=== PATIENT | male | born 1950 | race Hispanic/Latino ===

== ENCOUNTER → 2018-11-14 | Outpatient (CLI) | payer MEDICARE ==
[~2018-11-14] MED LIST: ACET-2123 PO; ASPI-1005 PO; ATOR10 PO; BISM262O28 PO; BUSP15TA3 PO; CARB15OT AD; CARB300C6 PO; DICL2100G TP; DIPH103G TP; DIPH25 PO; DOCU-282 PO; DOCU100T PO; FAMO20TA8 PO; FENO145T37 PO; FERR325T22 PO; GUAIFDM PO; HC1C1.5 TP; IBUP-2353 PO; LAMO100T13 PO; LIDO240G3 TP; MAGN400O17 PO; MELO-108 PO; MICO133A2 TP; MULT1TAB76 PO; OLOP15OS OD; PHEN177S29 PO; RISP4TAB16 PO; SERT100T12 PO
== END | disposition home or self-care (01) ==
LOC: OIH 10:47
PROVIDERS: ATTEND Internal Medicine
DX: M17.12 Unilateral primary osteoarthritis, left knee (principal); M17.11 Unilateral primary osteoarthritis, right knee; M23.92 Unspecified internal derangement of left knee; M25.762 Osteophyte, left knee; M25.462 Effusion, left knee; M25.461 Effusion, right knee
CPT/HCPCS: 73560

== ENCOUNTER → 2019-06-12 | Outpatient (CLI) | payer MEDICARE ==
[~2019-06-12] MED LIST changes: -CARB300C6 PO; +CARB300C9 PO; +FENO145T26 PO; -FENO145T37 PO; -IBUP-2353 PO; +IBUP-2784 PO; -LAMO100T13 PO; +LAMO100T16 PO
== END | disposition home or self-care (01) ==
LOC: OIH 10:54
PROVIDERS: ATTEND Internal Medicine
DX: M19.041 Primary osteoarthritis, right hand (principal); M25.741 Osteophyte, right hand
CPT/HCPCS: 73120

== ENCOUNTER 2020-08-16 11:19 | Emergency (ER) | payer MEDICARE ==
[~2020-08-16 11:19] MED LIST changes: -MULT1TAB76 PO; -RISP4TAB16 PO; +RISP4TAB73 PO; +SERT-440 PO; -SERT100T12 PO; +THEREMS-M1 EACH PO
[2020-08-16 12:11] LABS: BASOPHILS % (AUTO) 0.7 % (0.0-5.0); EOSINOPHILS % (AUTO) 3.9 % (0.0-8.0); HEMATOCRIT 30.7 % (42-54); LYMPHOCYTES % (AUTO) 25.3 % (21.0-51.0); MEAN CORPUSCULAR HEMOGLOBIN 31.7 pg (27.0-33.0); MEAN CORPUSCULAR HGB CONC 33.9 g/dL (32.0-36.0); MEAN CORPUSCULAR VOLUME 93.6 fL (79-99); MONOCYTES % (AUTO) 10.1 % (3.0-13.0); NEUTROPHILS % (AUTO) 59.5 % (40.0-77.0); PLATELET COUNT (AUTO) 267 K/uL (130-400); RED BLOOD CELL COUNT(AUTO) 3.28 MIL/uL (4.50-6.20); RED CELL DISTRIBUTION WIDTH 13.8 % (11.0-15.5); WHITE BLOOD COUNT (AUTO) 5.7 K/uL (4.8-10.8)
[2020-08-16 12:25] LABS: CREATININE 1.2 mg/dL (0.5-1.5)
[2020-08-16 12:26] LABS: INR 0.96 (0.85-1.15); PROTHROMBIN TIME 10.5 SEC (9.6-11.6)
[2020-08-16 12:27] LABS: PARTIAL THROMBOPLASTIN TIME 26.4 SEC (26.3-35.5)
[2020-08-16 12:35] LABS: ALBUMIN 3.8 g/dL (3.5-5.0); B-TYPE NATRIURETIC PEPTIDE 31 pg/mL (0-100); BILIRUBIN,TOTAL 0.2 mg/dL (0.2-1.0); TOTAL PROTEIN, SERUM 7.1 g/dL (6.0-8.3)
[2020-08-16] MEDS ORDERED: DIVALPROEX SODIUM 250 MG TABLET.DR PO ONE (13:46)
[2020-08-16 14:02] LABS: APPEARANCE,URINE Clear (CLEAR); BILIRUBIN,URINE Negative (NEGATIVE); COLOR,URINE Yellow (YELLOW); GLUCOSE, URINE (UA) Negative (NEGATIVE); KETONES,URINE Negative (NEGATIVE); LEUKOCYTE ESTERASE ,URINE Negative (NEGATIVE); NITRATE,URINE Negative (NEGATIVE); OCCULT BLOOD,URINE Negative (NEGATIVE); PH,URINE 6.5 (5.0-8.0); PROTEIN,URINE Negative (NEGATIVE); UROBILINOGEN,URINE 0.2 mg/dL (0.2-1.0)
== END 2020-08-16 15:00 | disposition home or self-care (01) ==
LOC: EDH 11:19
DX: S70.02XA Contusion of left hip, initial encounter (principal); E87.1 Hypo-osmolality and hyponatremia; R89.2 Abnormal level of other drugs, medicaments and biological substances in specimens from other organs, systems and tissues; Z20.822 Contact with and (suspected) exposure to COVID-19; G40.909 Epilepsy, unspecified, not intractable, without status epilepticus; W18.39XA Other fall on same level, initial encounter; Y93.89 Activity, other specified; Y92.89 Other specified places as the place of occurrence of the external cause; Y99.8 Other external cause status
CPT/HCPCS: 36415; 70450; 71045; 72125; 73502; 73552; 80053; 80156; 80164; 81003; 82542; 82550; 83880; 84484; 85025; 85610; 85730; 87426; 93005; 96360; 99285; J7030; U0003

== ENCOUNTER 2023-10-01 19:24 | Emergency (ER) | payer MEDICARE ==
[~2023-10-01 19:24] MED LIST changes: +DIPH-1242 PO; -DIPH25 PO; -RISP4TAB73 PO; +RISP4TAB94 PO
[2023-10-01] MEDS: 0.9% NACL 500ML IV.SOLN 500 ML IV ONE (21:23)
[2023-10-01 21:37] LABS: BASOPHILS # (AUTO) 0.03 K/uL (0.00-0.20); BASOPHILS % (AUTO) 0.4 % (0.0-5.0); EOSINOPHILS # (AUTO) 0.32 K/uL (0.00-0.70); EOSINOPHILS % (AUTO) 4.8 % (0.0-8.0); HEMATOCRIT 32.5 % (42-54); IMMATURE GRANULOCYTE ABSOLUTE 0.03 K/uL (0-1); LYMPHOCYTES # (AUTO) 2.1 K/uL (1.0-4.8); LYMPHOCYTES % (AUTO) 30.7 % (21.0-51.0); MEAN CORPUSCULAR HEMOGLOBIN 30.7 pg (27.0-33.0); MEAN CORPUSCULAR HGB CONC 32.9 g/dL (32.0-36.0); MEAN CORPUSCULAR VOLUME 93.4 fL (79-99); MONOCYTES # (AUTO) 0.8 K/uL (0.1-1.0); MONOCYTES % (AUTO) 11.4 % (3.0-13.0); NEUTROPHILS # (AUTO) 3.5 K/uL (1.8-7.7); NEUTROPHILS % (AUTO) 52.3 % (40.0-77.0); PLATELET COUNT (AUTO) 226 K/uL (130-400); RED BLOOD CELL COUNT(AUTO) 3.48 MIL/uL (4.50-6.20); RED CELL DISTRIBUTION WIDTH 14.5 % (11.0-15.5); WHITE BLOOD COUNT (AUTO) 6.7 K/uL (4.8-10.8)
[2023-10-01 21:38] LABS: APPEARANCE,URINE CLEAR (CLEAR); BILIRUBIN,URINE NEGATIVE (NEGATIVE); COLOR,URINE LIGHT-YELLOW (YELLOW); GLUCOSE, URINE (UA) NEGATIVE (NEGATIVE); KETONES,URINE NEGATIVE (NEGATIVE); LEUKOCYTE ESTERASE ,URINE NEGATIVE Leu/uL (NEGATIVE); NITRATE,URINE NEGATIVE (NEGATIVE); OCCULT BLOOD,URINE NEGATIVE (NEGATIVE); PROTEIN,URINE 30 mg/dL (NEGATIVE); UROBILINOGEN,URINE 0.2 mg/dL (0.2-1.0)
[2023-10-01 21:50] LABS: ADD UA MICROSCOPIC YES
[2023-10-01 21:51] LABS: POTASSIUM 4.3 mmol/L (3.5-5.1)
[2023-10-01 21:52] LABS: RBC,URINE 0-1 /HPF (0-1); SQUAMOUS EPITHELIAL CELL,UR RARE /HPF (0-2); WBC,URINE 0-1 /HPF (0-1)
[2023-10-01 21:56] LABS: ALBUMIN 3.5 g/dL (3.5-5.0); BILIRUBIN,TOTAL 0.2 mg/dL (0.2-1.0); TOTAL PROTEIN, SERUM 6.9 g/dL (6.0-8.3)
[2023-10-01 22:30] VITALS: BP 152/72; PULSE 74; RESP 16; O2SAT 97
== END 2023-10-01 22:40 | disposition home or self-care (01) ==
LOC: EDH 19:24
DX: R51.9 Headache, unspecified (principal); E78.00 Pure hypercholesterolemia, unspecified; G40.309 Generalized idiopathic epilepsy and epileptic syndromes, not intractable, without status epilepticus; I10 Essential (primary) hypertension; Z71.3 Dietary counseling and surveillance; Z79.82 Long term (current) use of aspirin; Z79.84 Long term (current) use of oral hypoglycemic drugs; Z79.899 Other long term (current) drug therapy; Z98.890 Other specified postprocedural states
CPT/HCPCS: 99284; 70450; 80053; 85025; 81001; 36415; J7040